=== PATIENT | male | born 1975 | race Caucasian/White ===

== ENCOUNTER 2022-02-07 17:27 | Emergency (ER) | payer OTHER ==
[2022-02-07 18:40] LABS: BASOPHIL 0.3 % (0-2); EOSINOPHIL 0.2 % (0-5); HCT 42.6 % (42.0-52.0); HGB 14.8 g/dl (13.2-18.0); LYMPHOCYTE 6.8 % (15-48); MCH 30.8 pg (25.0-31.0); MCHC 34.7 g/dL (32.0-36.0); MCV 88.8 fL (78.0-100.0); MONOCYTE 6.3 % (0-12); MPV 10.5 fL (6.0-9.5); NRBC 0; PLT 327 K/uL (150-400); RDW 13.5 % (11.5-14.0); WBC 15.6 K/uL (4.0-10.5)
[2022-02-07 19:04] LABS: BILIRUBIN NEGATIVE (NEGATIVE); BLOOD 3+ Ery/uL (NEGATIVE); CLARITY CLEAR (CLEAR); COLOR YELLOW (YELLOW); GLUCOSE (U) NORMAL (NORMAL); LEUKOCYTES 3+ Leu/uL (NEGATIVE); NITRITE NEGATIVE (NEGATIVE); PROTEIN 2+ mg/dL (NEGATIVE); UROBILINOGEN 0.2 mg/dL (0.2-1.0); pH 8.5 (5.0-9.0)
[2022-02-07 19:07] LABS: ALBUMIN 3.9 g/dL (3.4-5.0); BILIRUBIN - TOTAL 0.4 mg/dL (0.2-1.0); BUN/CREAT RATIO (CALC) 15.7 RATIO; CREATININE 0.89 mg/dL (0.67-1.17); PHOSPHORUS 2.6 mg/dL (2.6-4.7); POTASSIUM 3.3 mmol/L (3.5-5.1); TOTAL PROTEIN 7.9 g/dL (6.4-8.2)
[2022-02-07 19:46] LABS: BACTERIA 4+
[2022-02-07 19:47] LABS: TRIPLE PHOSPHATE CRYSTALS MODERATE
[2022-02-07 19:51] LABS: SQUAMOUS EPITHELIAL CELLS RARE
== END 2022-02-08 01:40 | disposition other institution (70) ==
LOC: FER 17:27
PROVIDERS: Emergency Medicine
DX: N13.2 Hydronephrosis with renal and ureteral calculous obstruction (principal); N39.0 Urinary tract infection, site not specified; Z28.310 Unvaccinated for COVID-19
CPT/HCPCS: 36415; 80053; 81001; 83605; 84100; 85025; 87040; 87076; 87088; 87186; J0696; J1170; J1885; J2405; J7030